=== PATIENT | female | born 1940 | race Caucasian/White ===

== ENCOUNTER 2021-05-22 08:24 | Emergency (ER) | payer MEDICARE, OTHER ==
[~2021-05-22] VITALS: Ht 160 cm; Wt 70.3 kg
== END 2021-05-22 11:10 | disposition home or self-care (01) ==
LOC: ER 08:47
DX: S00.83XA Contusion of other part of head, initial encounter (principal); W06.XXXA Fall from bed, initial encounter; Y92.128 Other place in nursing home as the place of occurrence of the external cause; F03.90 Unspecified dementia, unspecified severity, without behavioral disturbance, psychotic disturbance, mood disturbance, and anxiety; I10 Essential (primary) hypertension; E11.9 Type 2 diabetes mellitus without complications; E78.5 Hyperlipidemia, unspecified; K21.9 Gastro-esophageal reflux disease without esophagitis; I25.10 Atherosclerotic heart disease of native coronary artery without angina pectoris; G40.909 Epilepsy, unspecified, not intractable, without status epilepticus; Z86.73 Personal history of transient ischemic attack (TIA), and cerebral infarction without residual deficits
CPT/HCPCS: 70450; 71045; 72125; 72170; 99283

== ENCOUNTER → 2022-06-04 | Outpatient (CLI) | payer MEDICARE | LOC: US 13:18 | PROVIDERS: ATTEND Urology | DX: N39.0 Urinary tract infection, site not specified (principal); C64.1 Malignant neoplasm of right kidney, except renal pelvis | CPT/HCPCS: 71046; 74018; 76770 ==